=== PATIENT | female | born 1995 | race Caucasian/White ===

== ENCOUNTER 2017-11-23 19:09 | Emergency (ER) | payer BC, OTHER ==
[2017-11-23] MEDS: morphine 4 MG/ML VIAL IV (19:21)
[2017-11-23] MEDS: ONDANSETRON 4 MG INJ IV ×2 (19:21→20:14)
[2017-11-23] MEDS: SOD CHLORIDE 0.9% 1,000 ML IV (19:21)
[2017-11-23] MEDS: HYDROmorphONE 1 MG/5 ML IV SYRINGE IV ×2 (19:29→19:40)
[2017-11-23 19:34] LABS: ADD MAN DIFF? NO
[2017-11-23 19:36] LABS: ABNORMAL IP MESSAGE 1; BASOPHIL # 0.1 10^3/ul (0.0-0.1); BASOPHILS % 0.5 % (0.0-2.0); EOSINOPHILS # 0.1 10^3/ul (0.0-0.5); EOSINOPHILS % 0.8 % (0.0-7.0); HEMATOCRIT 42.2 % (37.0-47.0); LYMPHOCYTES # 5.6 10^3/ul (0.8-2.9); LYMPHOCYTES % 46.6 % (15.0-51.0); MEAN CORPUSCULAR HEMOGLOBIN 31.1 pg (29.0-33.0); MEAN CORPUSCULAR HGB CONC 35.5 g/dl (32.0-37.0); MEAN CORPUSCULAR VOLUME 87.6 fl (82.0-101.0); MEAN PLATELET VOLUME 10.3 fl (7.4-10.4); NEUTROPHIL # 5.2 10^3/ul (1.6-7.5); NEUTROPHILS % 43.8 % (39.0-77.0); PLATELET COUNT 287 10^3/UL (140-415); RED BLOOD COUNT 4.82 10^6/ul (4.20-5.40); RED CELL DISTRIBUTION WIDTH 11.2 % (11.5-14.5)
[2017-11-23 19:36] LABS: WHITE BLOOD COUNT 11.9 10^3/ul (4.8-10.8)
[2017-11-23 19:37] LABS: POSITIVE DIFF @See below
[2017-11-23] MEDS: SOD CHLORIDE 0.9% 100 ML (19:38)
[2017-11-23] MEDS: IOHEXOL 300MG/ML 150 ML BTL (19:38)
[2017-11-23 19:54] LABS: ALANINE AMINOTRANSFERASE 40 IU/L (13-69); ALBUMIN 4.4 g/dl (3.3-4.9); ALBUMIN/GLOBULIN RATIO 1.41; ALKALINE PHOSPHATASE 66 IU/L (42-121); ANION GAP 16 (8-16); ASPARTATE AMINO TRANSFERASE 28 IU/L (15-46); BILIRUBIN,INDIRECT 0.4 mg/dl (0-1.1); BILIRUBIN,TOTAL 0.4 mg/dl (0.2-1.3); BLOOD UREA NITROGEN 13 mg/dl (7-20); CALCIUM 9.5 mg/dl (8.4-10.2); CARBON DIOXIDE 22 mmol/L (21-31); CHLORIDE 110 mmol/L (97-110); CREATININE 0.73 mg/dl (0.44-1.00); GLUCOSE 104 mg/dl (70-220); LIPASE 79 U/L (23-300); POTASSIUM 3.3 mmol/L (3.5-5.1); SODIUM 145 mmol/L (135-144); TOTAL PROTEIN 7.5 g/dl (6.1-8.1)
[2017-11-23] MEDS: PROPOFOL 200 MG INJ IV (19:56)
== END 2017-11-23 22:34 | disposition home or self-care (01) ==
LOC: E/R 19:09
DX: S52.501A Unspecified fracture of the lower end of right radius, initial encounter for closed fracture (principal); S52.611A Displaced fracture of right ulna styloid process, initial encounter for closed fracture; S06.0X1A Concussion with loss of consciousness of 30 minutes or less, initial encounter; S60.512A Abrasion of left hand, initial encounter; S90.812A Abrasion, left foot, initial encounter; V43.52XA Car driver injured in collision with other type car in traffic accident, initial encounter
CPT/HCPCS: 25605; 36415; 70450; 71260; 72125; 73060-RT; 73090-RT; 74177; 80053; 83690; 85025; 94770; 96374; 96375; 96376; 99291-25

== ENCOUNTER 2017-11-25 22:59 | Emergency (ER) | payer BC, OTHER ==
[2017-11-25] MEDS: morphine 4 MG/ML VIAL IM (23:36)
[2017-11-25] MEDS: ONDANSETRON (ODT) 4 MG TAB ODT (23:36)
== END 2017-11-26 00:57 | disposition home or self-care (01) ==
LOC: E/R 22:59
DX: S52.91XD Unspecified fracture of right forearm, subsequent encounter for closed fracture with routine healing (principal); R40.2252 Coma scale, best verbal response, oriented, at arrival to emergency department; R40.2142 Coma scale, eyes open, spontaneous, at arrival to emergency department; R40.2362 Coma scale, best motor response, obeys commands, at arrival to emergency department; X58.XXXD Exposure to other specified factors, subsequent encounter
CPT/HCPCS: 96372; 99284-25

== ENCOUNTER 2017-12-24 16:12 | Emergency (ER) | payer OTHER, BC ==
[2017-12-24] MEDS: LIDOCAINE 1%/EPI 30 ML INJ INJ (18:32)
[2017-12-24] MEDS: DIPHTH/TET/ACEL PERTUSS (ADULT) 0.5 ML VIAL IM* (19:49)
== END 2017-12-24 19:51 | disposition home or self-care (01) ==
LOC: FTE 16:12
DX: S61.311A Laceration without foreign body of left index finger with damage to nail, initial encounter (principal); X58.XXXA Exposure to other specified factors, initial encounter; Y92.9 Unspecified place or not applicable; Z23 Encounter for immunization
CPT/HCPCS: 12001; 90471; 90715; 99283-25